=== PATIENT | male | born 1995 | race Caucasian/White ===

== ENCOUNTER 2023-04-24 23:32 | Emergency (ER) | payer OTHER ==
[~2023-04-24] VITALS: Ht 185.4 cm; Wt 91.0 kg
[2023-04-24 23:47] VITALS: BP 139/89; PULSE 100; RESP 18; TEMP 98.3
== END 2023-04-25 03:59 | disposition left against medical advice (07) ==
LOC: EMS 23:35
DX: M79.621 Pain in right upper arm (principal); Z53.21 Procedure and treatment not carried out due to patient leaving prior to being seen by health care provider
CPT/HCPCS: 99281; Z7502